=== PATIENT | male | born 1970 ===

== ENCOUNTER 2018-03-16 14:38 | Emergency (ER) | payer OTHER ==
[2018-03-16 15:08] VITALS: BP 157/77; PULSE 59; RESP 18; TEMP 98.7; O2SAT 99
--- NOTE | 2018-03-16 15:27 | ED PDOC ---
HPI: Skin/Bite Injury Time Seen by Provider: 03/16/18 15:11 Chief Complaint (Nursing): Abnormal Skin Integrity Chief Complaint (Provider): thumb laceration History Per: Patient Location Of Injury: Left: Hand (Thumb) Additional Complaint(s): 47 y/o right hand dominant male presents with left thumb laceration. 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 Patient reports of slight pain with no numbness or tingling to the affected area. Patient also reports tetanus vaccination is up to date. PMD: In [facility] Past Medical History Reviewed: Historical Data, Nursing Documentation, Vital Signs Vital Signs: Last Vital Signs Temp 98.7 F 03/16/18 15:05 Pulse 59 L 03/16/18 15:05 Resp 18 03/16/18 15:05 BP 157/77 H 03/16/18 15:05 Pulse Ox 99 03/16/18 15:36 - Medical History PMH: No Chronic Diseases - Surgical History Surgical History: No Surg Hx - Family History Family History: States: No Known Family Hx - Living Arrangements Living Arrangements: With Family - Social History Current smoker - smoking cessation education provided: No Alcohol: Occasional Drugs: Denies - Immunization History Hx Tetanus Toxoid Vaccination: Yes (last booster last year) - Home Medications Home Medications: Ambulatory Orders Medication Instructions Recorded Cephalexin [Keflex] 500 mg PO TID #21 capsule 03/16/18 Ibuprofen [Motrin] 600 mg PO Q6 PRN #15 tab 03/16/18 - Allergies Allergies/Adverse Reactions: Allergies Allergy/AdvReac Type Severity Reaction Status Date / Time No Known Allergies Allergy Verified 03/16/18 15:08 Review of Systems ROS Statement: Except As Marked, All Systems Reviewed And Found Negative Musculoskeletal: Positive for: Hand Pain (left thumb laceration) Neurological: Negative for: Numbness Physical Exam - Reviewed Nursing Documentation Reviewed: Yes Vital Signs Reviewed: Yes - Physical Exam Appears: Positive for: Well, Non-toxic, No Acute Distress Head Exam: Positive for: ATRAUMATIC Skin: Positive for: Normal Color. Negative for: Rash Eye Exam: Positive for: Normal appearance Cardiovascular/Chest: Positive for: Regular Rate, Rhythm Respiratory: Positive for: Normal Breath Sounds. Negative for: Accessory Muscle Use, Respiratory Distress Extremity: Positive for: Other (2 cm very superficial laceration to finger pad of left thumb. No active bleeding. Neurvascularly intact, normal distal sensation) Neurologic/Psych: Positive for: Alert, Oriented. Negative for: Motor/Sensory Deficits - ECG O2 Sat by Pulse Oximetry: 99 (RA) Pulse Ox Interpretation: Normal Medical Decision Making Medical Decision Making: Impression: Left thumb laceration Procedure note: Under sterile conditions wound was cleansed with normal saline and Betadine, Dermabond used to approximate wound edges, good wound approximation was achieved, procedure tolerated well by patient with no complications, sterile bandage applied over repaired wound, N/V intact s/p placement. 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 Scribe Attestation: Documented by Reynold Jones, acting as a scribe for Randa Burt PA-C. Provider Scribe Attestation: All medical record entries made by the Scribe were at my direction and personally dictated by me. I have reviewed the chart and agree that the record accurately reflects my personal performance of the history, physical exam, medical decision making, and the department course for this patient. I have also personally directed, reviewed, and agree with the discharge instructions and disposition. Disposition - Clinical Impression Clinical Impression: Thumb laceration Counseled Patient/Family Regarding: Need For Followup - Disposition Referrals: Tyree Gibson MD [Medical Doctor] - Disposition: Routine/Home Disposition Time: 16:01 Condition: STABLE Additional Instructions: Keep wound clean and dry. Allow excess glue to flake off on its own. Take rx meds as directed. Follow up with clinic or hand specialist. Prescriptions: Cephalexin [Keflex] 500 mg PO TID #21 capsule Ibuprofen [Motrin] 600 mg PO Q6 PRN #15 tab PRN Reason: Pain, Moderate (4-7) Instructions: Laceration Repair With Glue (DC) Forms: [employer] (Uzbek), [facility] ED School/Work Excuse Print Language: HEBREW Procedures - Laceration/Wound Repair Left Finger Wound Length (cm): 2 Wound's Depth, Shape: superficial Wound Explored: clean Betadine Prep?: Yes Wound Repaired With: Skin adhesive (dermabond) Wound Complexity: Simple Sterile Dressing Applied?: Yes
== END 2018-03-16 17:03 | disposition home or self-care (01) ==
LOC: H.ER 14:38
DX: S61.012A Laceration without foreign body of left thumb without damage to nail, initial encounter (principal); W26.0XXA Contact with knife, initial encounter; Y99.0 Civilian activity done for income or pay